=== PATIENT | male | born 2000 | race Caucasian/White ===

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

== ENCOUNTER 2021-04-05 12:16 | Emergency (ER) | payer BC | END 2021-04-05 13:42 | disposition home or self-care (01) | LOC: MADERS 12:16 | DX: S06.0X9A Concussion with loss of consciousness of unspecified duration, initial encounter (principal); J45.909 Unspecified asthma, uncomplicated; Z79.899 Other long term (current) drug therapy; W20.8XXA Other cause of strike by thrown, projected or falling object, initial encounter | CPT/HCPCS: 99283 ==

== ENCOUNTER 2021-06-17 09:42 | Outpatient (CLI) | payer BC | END 2021-06-17 09:43 | disposition home or self-care (01) | LOC: MADRAD 09:42 | PROVIDERS: ATTEND Registered Nurse | DX: M25.511 Pain in right shoulder (principal) ==